=== PATIENT | female | born 1970 | race Caucasian/White ===

== ENCOUNTER 2024-03-06 11:56 | Outpatient (CLI) | payer OTHER, SELFPAY ==
--- NOTE | 2024-03-06 15:30 | ECG_ITS ---
SEE SCANNED COPY FOR CONFIRMED REPORT MTDD
[2024-03-06 16:02] LABS: Hematocrit 36.3 % (37.0-47.0); Hemoglobin 11.5 g/dL (12.0-15.0); Mean Corpuscular HGB Conc 31.7 g/dl (32-36); Mean Corpuscular Hemoglobin 27.6 pg (26-34); Mean Corpuscular Volume 87.1 fl (80-100); Mean Platelet Volume 10.7 fl (7.4-10.4); Platelet Count Result 243 k/mm3 (150-375); Red Blood Count 4.17 M/mm3 (4.2-5.4); Red Cell Distribution Width 14.1 % (11.5-14.5); White Blood Count 8.4 K/mm3 (4.5-10.0)
[2024-03-06 16:12] LABS: Alanine Aminotransferase 30 U/L (6-35); Albumin Level 4.7 g/dL (3.5-5.1); Alkaline Phosphatase 65 U/L (38-126); Anion Gap 8 mmol/L (4-12); Aspartate Amino Transferase 30 U/L (14-36); Bilirubin,Total 0.4 mg/dL (0.2-1.3); Blood Urea Nitrogen 22 mg/dL (7-17); Carbon Dioxide 29 mmol/L (22-30); Chloride 101 mmol/L (98-107); Estimated Glomerular Filt Rate > 60; Glucose 83 mg/dL (65-110); Potassium 3.6 mmol/L (3.4-5.0); Sodium 138 mmol/L (137-145)
== END 2024-03-06 11:57 | disposition home or self-care (01) ==
PROVIDERS: PCP Family Medicine; Visit Provider Student in an Organized Health Care Education/Training Program
DX: Z01.818 Encounter for other preprocedural examination (principal); I10 Essential (primary) hypertension; R10.2 Pelvic and perineal pain
CPT/HCPCS: 36415; 80053; 85027; 86850; 86900; 86901; 93005

== ENCOUNTER 2024-03-12 01:09 | Day surgery (SDC) | payer OTHER, SELFPAY ==
[2024-03-05 11:01] VITALS: BMI 45.2
--- NOTE | 2024-03-05 11:27 | PC.NURSE ---
Report to the Outpatient Waiting Room, entrance under the green pavilion located off [facility], at time __10:00AM on date __03/12/24 . Planned Procedure Time: __12:00PM . Time changes happen often and if your time is changed the preop area will call you the afternoon before. - You and your visitor will be asked to self-screen and do not enter if you have any COVID symptoms. - A mask is optional within the hospital at this time. Patients may have clear liquids (water, carbonated beverages, clear teas, apple juice) until 3 hours prior to surgery with a maximum of 20 ounces. - No food from midnight until time of surgery. Take the following medications with a SIP of water the morning of surgery: HYDROCODONE NEEDED FOR PAIN DO NOT STOP ANY OF YOUR OTHER PRESCRIPTION MEDICATIONS PRIOR TO SURGERY ?EXCEPT THE FOLLOWING Medications to discontinue per physician HOLD ALL VITAMINS/SUPPLEMENTS 3 DAYS PRE-OP PER ANESTHESIA- LAST DOSE 03/08/[address] VASQUEZ 7 DAYS PRE-OP - LAST DOSE 03/04/24 Please no make-up, nail hungarian, hairspray, perfume, deodorant, or body powder the day of surgery. No jewelry (including any body piercings) or valuables the day of surgery, leave them at home. Please take a shower or bath the night before, or the morning of, surgery with an antibacterial soap. Wear comfortable, loose fitting clothing. - Jewelry must be removed prior to entering the operating room. Rings and piercings that are not removed may be cut off. - The hospital will not accept responsibility for valuables. - Please leave all valuables, including medications, at home the day of surgery. If you are going home after surgery, a licensed motor coach driver must drive you home. - NO public transportation without another adult if you receive anesthesia. - We recommend that an adult stay with you for 24 hours following discharge. - We also recommend that you do not drive, make important decision, drink alcoholic beverages, or take any drugs that were not prescribed by your health care provider for at least 24 hours after your discharge time. Follow any additional instructions given to you from your surgeon. If you or anyone in your household have experienced Covid symptoms in the past week, please notify your surgeon or the nurse liaison at the phone number below for possible testing. Telephone instructions given to ____PATIENT and asked if any additional questions and then verbalized understanding. Patient advised to call surgeon office or pre surgery nurse liaison [phone] if any additional questions.
[2024-03-12] VITALS (9 sets, daily range): BP systolic 124–151; BP diastolic 78–88; PULSE 85–103; RESP 17–24; TEMP 36.2–37; O2SAT 92–100
--- NOTE | 2024-03-12 08:38 | PM.IMHP ---
H&P: HPI History of Present Illness Date/Time: 03/12/24 08:38 Chief Complaint: pelvic pain ovarian cyst Narrative: 53-year-old female who presents for hysterectomy.? Patient has been having pelvic pain for the past several months.? Patient presented to the emergency room after an acute exacerbation of pelvic pain.? Patient had a CT scan and ultrasound which showed an enlarged right ovarian cyst.? Patient then had an MRI scheduled.? Patient had an endometrial ablation performed and approximately 2002 for abnormal uterine bleeding.? Patient reports a history of PCOS.? Of note, patient has had 4 prior Caesarean sections.? Patient reports amenorrhea since endometrial ablation.? Review of Systems Cardiovascular: Cardiovascular: Denies chest pain, Denies leg edema, Denies palpitations, Denies dyspnea and Denies dyspnea on exertion Respiratory: Respiratory: Denies cough, Denies dyspnea and Denies dyspnea on exertion Gastrointestinal: Gastrointestinal: Denies abdominal pain, Denies constipation, Denies diarrhea, Denies nausea and Denies vomiting Genitourinary: Genitourinary: Denies hematuria, Denies urinary frequency, Denies dysuria, Denies pelvic pain, Denies urinary incontinence and Denies vaginal discharge Neurologic: Reports system reviewed and no additional complaints, except as documented Psychiatric: Psychiatric: Reports no additional psychiatric complaints Endocrine: Endocrine: Denies palpitations PMFSH Past Medical History Medical History Diabetes Fibromyalgia Hyperlipidemia Hypertension PCOS (polycystic ovarian syndrome) Surgical History Surgical History History of delivery x 4 History of hysteroscopy ablation Family History Family History Grandparent Breast cancer Father Diabetes mellitus Heart disease Hypertension Mother Seizures Social History Social History Smoking status: Never smoker Alcohol intake: never Substance use: never Do You Feel Safe in your Home?: Yes Lack of Transportation: No Lack of Food: Never True Current Housing: I Have Housing Concerned About Future Housing: No Difficulty Paying Gas/Electric Bills: No Difficulty Paying for Meds: No Currently Unemployed: No Education: Trade/Vocational Certificate Difficulty w/ Childcare or Family Care: No Living arrangements: with family [facility] Occupation/Education: occupation Gender identity (if verbalized by the patient): Female Spiritual care concerns: No Meds Home Medications and Allergies Home Medications Medication Instructions Recorded Confirmed Type atorvastatin 10 mg tablet 10 mg PO DAILY 01/22/24 03/05/24 History glimepiride 2 mg tablet 2 mg PO BID 01/22/24 03/05/24 History hydrocodone 5 mg-acetaminophen 325 1 tablet PO Q6-8H 01/22/24 03/05/24 History mg tablet metformin 500 mg tablet,extended See Rx Instructions .Route .COMPLEX 01/22/24 03/05/24 History release 24 hr metoprolol succinate 50 mg 50 mg PO QPM 01/22/24 03/05/24 History tablet,extended release 24 hr omeprazole 20 mg capsule,delayed 20 mg PO DAILY 01/22/24 03/05/24 History release potassium chloride 20 mEq 20 meq PO DAILY 01/22/24 03/05/24 History tablet,extended release(part/cryst) (Klor-Con M) ropinirole 6 mg tablet,extended 6 mg PO HS 01/22/24 03/05/24 History release 24 hr semaglutide 0.25 mg or 0.5 mg (2 0.5 mg subcut WEEKLY 01/22/24 03/05/24 History mg/3 mL) subcutaneous pen injector (Ozempic) triamterene 37.5 1 cap PO QAM 01/22/24 03/05/24 History mg-hydrochlorothiazide 25 mg capsule aspirin 81 mg tablet,delayed 81 mg PO DAILY 03/05/24 03/05/24 History release cholecalciferol (vitamin D3) 125 125 mcg PO DAILY 05
[2024-03-12] MEDS: LACTATED RINGERS 1,000 ML 30 ML IV CONT ×2 (10:36→14:49)
[2024-03-12 10:48] LABS: Glucose Point of Care 207 mg/dl (65-105)
[2024-03-12] MEDS: KETOROLAC 15 MG/ML VIAL (*BKC) IV PUSH (10:59)
[2024-03-12] MEDS: ACETAMINOPHEN 500 MG TABLET 1000 MG PO (11:00)
--- NOTE | 2024-03-12 11:27 | WPDHPUPDATE1 ---
History and Physical Update Update Date/Time: 03/12/24 11:27 will proceed with robotic TLH/ bilateral salpingectomy, right oophorectomy History and Physical has been reviewed, including an updated exam of the patient. There are NO changes in the patient's condition. Risks, benefits, and alternatives have been discussed and questions answered. Patient agrees to proceed with procedure.
--- NOTE | 2024-03-12 11:43 | WPDANESEPPF ---
Anes - Initial Pre Proc Eval Procedure: Operation Date: 03/12/24 12:00 Proposed Procedures p Robotic Assisted Total Laparoscopic Hysterectomy with Left Salpingectomy, Right Salpingo-oophorectomy - Sachin Dodd MD Date/Time: 03/12/24 11:43 Surgeon: Sachin Dodd MD Pre Op Diagnosis: pelvic pain Patient Data Age: 53 Gender: F Height: 1.52 m Weight: 102 kg Last Vital Signs Temp 98.5 F 03/12/24 10:11 Pulse 85 03/12/24 10:11 Resp 18 03/12/24 10:11 BP 151/81 H 03/12/24 10:11 Pulse Ox 100 03/12/24 10:11 O2 Del Method Room Air 03/12/24 10:11 Allergies Allergy/AdvReac Type Severity Reaction Status Date / Time No Known Allergies Allergy Verified 03/12/24 10:04 Home Medications Medication Instructions Recorded Confirmed Type atorvastatin 10 mg tablet 10 mg PO DAILY 01/22/24 03/12/24 History glimepiride 2 mg tablet 2 mg PO BID 01/22/24 03/12/24 History hydrocodone 5 mg-acetaminophen 325 1 tablet PO Q6-8H 01/22/24 03/12/24 History mg tablet metformin 500 mg tablet,extended See Rx Instructions .Route .COMPLEX 01/22/24 03/12/24 History release 24 hr metoprolol succinate 50 mg 50 mg PO QPM 01/22/24 03/12/24 History tablet,extended release 24 hr omeprazole 20 mg capsule,delayed 20 mg PO DAILY 01/22/24 03/12/24 History release potassium chloride 20 mEq 20 meq PO DAILY 01/22/24 03/12/24 History tablet,extended release(part/cryst) (Klor-Con M) ropinirole 6 mg tablet,extended 6 mg PO HS 01/22/24 03/12/24 History release 24 hr semaglutide 0.25 mg or 0.5 mg (2 0.5 mg subcut WEEKLY 01/22/24 03/12/24 History mg/3 mL) subcutaneous pen injector (Ozempic) triamterene 37.5 1 cap PO QAM 01/22/24 03/12/24 History mg-hydrochlorothiazide 25 mg capsule aspirin 81 mg tablet,delayed 81 mg PO DAILY 03/05/24 03/12/24 History release cholecalciferol (vitamin D3) 125 125 mcg PO DAILY 03/05/24 03/12/24 History mcg (5,000 unit) tablet cyanocobalamin (vitamin B-12) 1,000 mcg IM [id number] 03/05/24 03/12/24 History 1,000 mcg/mL injection solution gabapentin 100 mg capsule 100 mg PO HS 03/05/24 03/12/24 History insulin glargine 100 unit/mL (3 160 unit subcut HS 03/05/24 03/12/24 History mL) subcutaneous pen (Lantus Solostar U-100 Insulin) iron polysacch cplx 150 mg 1 cap PO DAILY 03/05/24 03/12/24 History iron-vit B12 25 mcg-folic acid 1 mg capsule (Ferrex) meloxicam 7.5 mg tablet 7.5 mg PO QAM 03/05/24 03/12/24 History Laboratory Tests 03/12/24 10:42 POC Capillary Glucose 207 H mg/dl (65-105) Patient hx anesthesia problems: none Family hx anesthesia problems: none Results Review: All pre-operative results and documents have been reviewed as part of the pre-operative evaluation. [facility] Past Medical History Medical History Diabetes Fibromyalgia Hyperlipidemia Hypertension PCOS (polycystic ovarian syndrome) Surgical History Surgical History History of delivery x 4 History of hysteroscopy ablation Family History Family History Grandparent Breast cancer Father Diabetes mellitus Heart disease Hypertension Mother Seizures Social History Social History Smoking status: Never smoker Alcohol intake: never Substance use: never Do You Feel Safe in your Home?: Yes Lack of Transportation: No Lack of Food: Never True Current Housing: I Have Housing Concerned About Future Housing: No Difficulty Paying Gas/Electric Bills: No Difficulty Paying for Meds: No Currently Unemployed: No Education: Trade/Vocational Certificate Difficulty w/ Childcare or Family Care: No Living arrangements: with family Additional living arrangements comments: [facility]
[2024-03-12] MEDS: ceFAZolin 2 GM/D5W 50 ML 2 GM/50 ML BAG IVPB (12:09)
[2024-03-12] MEDS: LIDO 1%/EPINEPHRINE 1:100,000 50 ML VIAL INFILTRATE (12:50)
[2024-03-12] MEDS: ceFAZolin SODIUM 1 GM VIAL IV PUSH (14:12)
--- NOTE | 2024-03-12 14:29 | W.PM.PROC2 ---
Procedure Note - Detailed Date of Procedure 03/12/24 Pre-op Diagnosis pelvic pain ovarian cyst Post-op Diagnosis Same Procedure Performed robotic supracervical hysterectomy, bilateral salpingectomy, right oophorectomy Surgeon Sachin Dodd MD Anesthesia General Indications pelvic pain right ovarian cyst Findings dilated right fallopian tube and enlarge paratubal cyst, normal appearing ovaries bilaterally, normal uterine serosa Description of Procedure After the patient was appropriately consented she was taken to the operating room where she was transferred to the table in a dorsal supine position. General anesthesia was then induced with endotracheal intubation. The patient was transferred to a dorsal lithotomy position using adjustable yellow-fin stirrups. Her position was adjusted for appropriate support of her lower back and lower extremities. The patient was prepped and draped. A transurethral velazco catheter was place. The cervix was sequentially dilated and a SHARON uterine manipulator placed in typical fashion about a 3.5cm ABBIE ring. Gloves were changed. After confirmation of a functioning orogastric tube, lidocaine was injected at Leyva's point in the LUQ and a 5mm incision was made. A 5mm Optiview trocar was then inserted into the abdominal cavity under direct visualization and done so without complication. The abdomen was then insufflated with approximately 2-3L of CO2 establishing a pneumoperitoneum and the patient was placed in Trendelenburg position. Just above the umbilicus in the midline, a 8 mm incision made after injection of lidocaine and a 8 mm bladeless trocar advanced into the abdominal cavity under direct visualization without incident. We subsequently placed two robotic ports in a similar fashion, one in the left mid-quadrant and one in the right, 10cm lateral to the midline port. The robot was then docked. Pelvic survey was performed. Pt had omental adhesions to the anterior abdominal wall from previous c-sections. These adhesions were taken down bluntly. Patient was noted to have a large amount of visceral adipose tissue. The bowel was restricting visualization of the surgical field. Attention was turned to the left pelvis. The left fallopian tube was removed by sequentially dividing the mesosalpinx towards the uterus sparing the ovary. The utero-ovarian ligament was desiccated and transected, as was the round ligament. The posterior peritoneal leaf was taken down to the ABBIE ring. The anterior leaf was developed as well as the start of the bladder flap. The left uterine artery was then skeletonized and desiccated and transected just above the level of the ABBIE ring. Attention was turned to the right pelvis. The right fallopian tube was enlarged and had a large paratubal cyst at the fimbriated end adherent to the ovary. The Right IP ligament and its vessels was identified and ligated. The right adnexa was then dissected from the pelvic side wall. The right round ligament was transected. The posterior peritoneal leaf was taken down to the ABBIE ring. The anterior leaf was developed as well as the start of the bladder flap. The right uterine artery was then skeletonized and desiccated and transected just above the level of the ABBIE ring. The bladder was then further dissected inferiorly over the level of the ABBIE ring. Confirmation of the ABBIE ring location was not easily identified. Upon evaluation, the uterine manipulator was fallen out of the uterus. The ABBIE ring was not positioned on the cervix. An EEA sizer was placed in the vagina to help delineate the cervix. Due to scarring from previous c-sections, limited visibility of the posterior cul de sac from bowel, and inability to identify the cervix decision was made to proceed with supracervical hysterectomy. The uterus was transected at the level of the cervical isthmus. Good hemostasis was obtained at the cervical stump. At this time, the robotic portion of the procedure was terminated
--- NOTE | 2024-03-12 14:45 | SUR.OPER ---
EBL 30ML.
[2024-03-12 15:03] LABS: Glucose Point of Care 228 mg/dl (65-105)
[2024-03-12] MEDS: fentaNYL CITRATE INJ (*CRX) 100 MCG/2 ML VIAL 25 MCG IV PUSH ×6 (15:12→15:58)
--- NOTE | 2024-03-12 15:32 | PM.DS ---
DS: Admitting Diagnosis Discharge Date 03/13/24 Admitting Diagnosis pelvic pain ovarian cyst DS: Discharge Diagnosis Discharge Diagnosis (1) Pelvic pain: Code(s): R10.2 - Pelvic and perineal pain Status: Acute (2) Ovarian cyst: Code(s): N83.209 - Unspecified ovarian cyst, unspecified side Status: Acute DS: Summary Hospital Course Hospital Course: Concepción Sorensen was admitted after robotic assisted supracervical hysterectomy and bilateral salpingectomy and right oophorectomy for pelvic pain and ovarian cyst. The above procedure was performed with no complications. She is doing well post op. She states her pain is well controlled with PO medications. She reports minimal bleeding. She is ambulating up to the chair. Her velazco catheter was removed. She is tolerating PO without N/V. She reports passing flatus. Status at Discharge Overall status at discharge: patient is progressing back to baseline Time Spent with Patient Time attestation: Total time spent providing and/or coordinating discharge services: Time spent: Less than 30 minutes Exam Const: General: comfortable and no acute distress Limitations: no limitations Resp: Effort & Inspection: normal respiratory effort Auscultation: clear to auscultation bilaterally Cardio: Rate: regular rate Rhythm: regular rhythm GI: Inspection: non-distended GI Palp: Yes Soft to palpation, Yes Tenderness to palpation present (GI) (milder tenderness to deep palpation) and No Guarding due to palpation present (GI) Auscultation: normal bowel sounds Other: incisions C/D/I covered with dermabond Urinary Catheter: Urinary Catheter: urine clear Skin: General skin exam: normal color Extrem: General: normal to inspection Psych: Mental Status: mental status grossly normal Affect: normal affect DS: Data Data Completed and Pending Pending studies at discharge: Pending at discharge 03/12/24 14:32 Surgical [PTH] Routine Labs on day of discharge: Labs from last 24 hours 03/12/24 03/12/24 14:59 10:42 POC Capillary Glucose 228 H 207 H Discharge Plan Discharge Patient Disposition: Home, Self-Care Patient Instructions: Laparoscopic Hysterectomy (DC) Stand Alone Forms: General Discharge Instructions Follow-up/Referrals: Sachin Dodd MD [Physician] - 2 Weeks Discharge Medications: New oxycodone-acetaminophen 5-325 mg tablet 1 tablet PO Q6H PRN (Reason: pain) Qty: 28 0RF enoxaparin [Lovenox] 40 mg/0.4 mL syringe 40 mg subcut DAILY 7 Days Qty: 2.8 0RF Continued hydrocodone-acetaminophen 5-325 mg tablet 1 tablet PO Q6-8H ropinirole 6 mg tablet extended release 24 hr 6 mg PO HS potassium chloride [Klor-Con M20] 20 mEq tablet,ER particles/crystals 20 meq PO DAILY triamterene-hydrochlorothiazid 37.5-25 mg capsule 1 cap PO QAM atorvastatin 10 mg tablet 10 mg PO DAILY metformin 500 mg tablet extended release 24 hr See Rx Instructions .ROUTE .COMPLEX Rx Instructions: 500MG IN AM AND 1000MG PM PO Ozempic 0.25 mg or 0.5 mg (2 mg/3 mL) pen injector 0.5 mg subcut WEEKLY Rx Instructions: WEDNESDAYS omeprazole 20 mg capsule,delayed release(DR/EC) 20 mg PO DAILY metoprolol succinate 50 mg tablet extended release 24 hr 50 mg PO QPM glimepiride 2 mg tablet 2 mg PO BID cyanocobalamin (vitamin B-12) 1,000 mcg/mL solution 1,000 mcg IM [id number] aspirin 81 mg Tablet,Delayed Release (Dr/Ec) 81 mg PO DAILY meloxicam 7.5 mg tablet 7.5 mg PO QAM gabapentin 100 mg capsule 100 mg PO HS cholecalciferol (vitamin D3) 125 mcg (5,000 unit) Tablet 125 mcg PO DAILY Ferrex 150 Forte 150-25-1 mg-mcg-mg capsule 1 cap PO DAILY insulin glargine [Lantus Solostar U-100 Insulin] 100 unit/mL (3 mL) insulin pen 160 unit SUBCUT HS
[2024-03-12] MEDS: SIMETHICONE 80 MG TAB.CHEW PO (16:29)
[2024-03-12] MEDS: LACTATED RINGERS 1,000 ML 125 ML IV CONT (16:29)
[2024-03-12] MEDS: IBUPROFEN 600 MG TABLET PO (16:43)
[2024-03-12] MEDS: HYDROcodone/acetaminophen (*CRX) 10-325 MG TABLET 1 TAB PO ×2 (16:43→21:18)
[2024-03-12] MEDS: SENNA/DOCUSATE SODIUM TABLET 2 TAB PO (21:18)
[2024-03-13 00:26] VITALS: BP 116/82; PULSE 98; RESP 18; TEMP 36.8; O2SAT 95
[2024-03-13] MEDS: HYDROcodone/acetaminophen (*CRX) 10-325 MG TABLET 1 TAB PO ×3 (00:44→11:38)
[2024-03-13 05:16] VITALS: BP 118/75; PULSE 99; RESP 16; TEMP 37.1; O2SAT 94
[2024-03-13 05:52] LABS: Basophils Percent Auto 0.3 % (0.2-1.2); Eosinophils Absolute Auto 0.1 K/mm3 (0-0.3); Eosinophils Percent Auto 1.4 % (0-4.4); Hematocrit 31.6 % (37.0-47.0); Hemoglobin 10.1 g/dL (12.0-15.0); Immature Granulocyte Absolute 0.02 K/mm3 (0.00-0.031); Immature Granulocyte Percent A 0.3 % (0-0.5); Lymphocytes Absolute Auto 1.88 K/mm3 (0.9-3.2); Lymphocytes Percent Auto 27.2 % (18.3-44.2); Mean Corpuscular Hemoglobin 27.7 pg (26-34); Mean Corpuscular Volume 86.6 fl (80-100); Mean Platelet Volume 10.7 fl (7.4-10.4); Monocytes Absolute Auto 0.4 K/mm3 (0.1-0.6); Monocytes Percent Auto 6.1 % (2.6-8.5); Neutrophils Absolute Auto 4.5 K/mm3 (1.3-6.7); Neutrophils Percent Auto 64.7 % (45.5-73.1); Platelet Count Result 202 k/mm3 (150-375); Red Blood Count 3.65 M/mm3 (4.2-5.4); Red Cell Distribution Width 14.4 % (11.5-14.5); White Blood Count 6.9 K/mm3 (4.5-10.0)
[2024-03-13 06:01] LABS: Anion Gap 6 mmol/L (4-12); Blood Urea Nitrogen 21 mg/dL (7-17); Calcium 7.9 mg/dL (8.4-10.2); Carbon Dioxide 30 mmol/L (22-30); Chloride 98 mmol/L (98-107); Estimated CRCL calculation 67 ml/min; Estimated Glomerular Filt Rate > 60; Glucose 259 mg/dL (65-110); Potassium 3.6 mmol/L (3.4-5.0); Sodium 134 mmol/L (137-145)
[2024-03-13] MEDS: IBUPROFEN 600 MG TABLET PO (06:24)
[2024-03-13] MEDS: SIMETHICONE 80 MG TAB.CHEW PO ×2 (07:36→11:38)
[2024-03-13 08:40] VITALS: BP 110/64; PULSE 91; RESP 16; TEMP 36.9; O2SAT 93
[2024-03-13] MEDS: ENOXAPARIN 40 MG/0.4 ML SYRINGE SUB-Q (09:14)
--- NOTE | 2024-03-13 13:00 | P.PNAN_ITS ---
Anes - Prog Note Post-Op Date/Time: 03/13/24 13:00 Cardiovascular status: normal Respiratory status: normal Airway patency: baseline Mental status: baseline Post-Op hydration status: normal Vital Signs: Last Vital Signs Temp 98.4 F 03/13/24 08:40 Pulse 91 03/13/24 08:40 Resp 16 03/13/24 08:40 BP 110/64 03/13/24 08:40 Pulse Ox 93 03/13/24 08:40 O2 Del Method Room Air 03/13/24 05:16 O2 Flow Rate 2 03/12/24 15:45 Pain Score (VAS): 0/10 I/O: Intake & Output 03/12/24 03/13/24 03/13/24 23:59 07:59 15:59 Intake Total 500 Output Total 700 200 Balance -200 -200 Laboratory Tests 03/13/24 05:44 03/13/24 05:44 03/12/24 03/13/24 14:59 05:44 WBC 6.9 RBC 3.65 L Hgb 10.1 L Hct 31.6 L MCV 86.6 MCH 27.7 MCHC 32.0 RDW 14.4 Plt Count 202 MPV 10.7 H Immature Gran % (Auto) 0.3 Neut % (Auto) 64.7 Lymph % (Auto) 27.2 [place] % (Auto) 6.1 Eos % (Auto) 1.4 Baso % (Auto) 0.3 Lymph # (Auto) 1.88 [place] # (Auto) 0.4 Eos # (Auto) 0.1 Baso # (Auto) 0.0 Abs Immat Gran (auto) 0.02 Absolute Neuts (auto) 4.5 Absolute Nucleated RBC 0.000 Nucleated RBC % 0.0 Sodium 134 L Potassium 3.6 Chloride 98 Carbon Dioxide 30 Anion Gap 6 BUN 21 H Creatinine 0.90 Estim Creat Clear Calc 67 Estimated GFR > 60 Glucose 259 H POC Capillary Glucose 228 H Calcium 7.9 L Post-procedural complaints: none Patient Feedback: Patient satisfied with anesthetic care.
== END 2024-03-13 13:36 | disposition home or self-care (01) ==
LOC: ANHSURGERY 15:32 → ANHOB2 16:20
PROVIDERS: PCP Family Medicine; Visit Provider Student in an Organized Health Care Education/Training Program
PROC: (CPT 58542; principal; 2024-03-12 12:00)
DX: N84.0 Polyp of corpus uteri (principal); N80.00 Endometriosis of the uterus, unspecified; N83.8 Other noninflammatory disorders of ovary, fallopian tube and broad ligament; I10 Essential (primary) hypertension; E78.5 Hyperlipidemia, unspecified; E11.9 Type 2 diabetes mellitus without complications; E28.2 Polycystic ovarian syndrome; E66.01 Morbid (severe) obesity due to excess calories; Z68.41 Body mass index [BMI] 40.0-44.9, adult; Z79.84 Long term (current) use of oral hypoglycemic drugs; Z79.891 Long term (current) use of opiate analgesic; Z79.85 Long-term (current) use of injectable non-insulin antidiabetic drugs; Z79.82 Long term (current) use of aspirin; Z79.4 Long term (current) use of insulin; Z98.890 Other specified postprocedural states; Z80.3 Family history of malignant neoplasm of breast; Z82.49 Family history of ischemic heart disease and other diseases of the circulatory system
CPT/HCPCS: 58542; S2900; 36415; 80048; 80053; 82948; 85025; 85027; 86850; 86900; 86901; 88307; 93005; 99199; A9270; J0330; J0690; J1650; J1885; J2250; J2371; J2405; J2704; J3010; J7120